=== PATIENT | female | born 1975 | race Caucasian/White ===

== ENCOUNTER 2023-09-01 09:37 | Day surgery (SDC) | payer BC ==
[2023-09-01] MEDS: Lactated Ringers 1,000 ML IV SCH (09:48)
[2023-09-01] MEDS ORDERED: Ketamine 200 MG/20 ML MDV ONE (10:25)
[2023-09-01] MEDS ORDERED: Propofol 200 MG/20 ML SDV ONE (10:25)
[2023-09-01] MEDS ORDERED: fentaNYL 50 MCG/ML SDV ONE (10:25)
== END 2023-09-01 11:29 | disposition home or self-care (01) ==
LOC: CC.SDS 09:37
PROVIDERS: ATTEND Family Medicine
DX: Z12.11 Encounter for screening for malignant neoplasm of colon (principal); K21.9 Gastro-esophageal reflux disease without esophagitis; I10 Essential (primary) hypertension; E66.9 Obesity, unspecified; Z68.30 Body mass index [BMI] 30.0-30.9, adult; Z87.891 Personal history of nicotine dependence; Z79.899 Other long term (current) drug therapy
CPT/HCPCS: 00812; J2704; J3010; J3490; J7120